=== PATIENT | male | born 1970 | race Caucasian/White ===

== ENCOUNTER 2020-11-05 09:53 | Observation (INO) | payer OTHER ==
[2020-11-05] MEDS ORDERED: SODIUM CHLORIDE 0.9% 500 ML 500 ML IV STA (10:14)
--- NOTE | 2020-11-05 10:18 | ED ---
General Adult HPI - General Chief complaint: Chest Pain Stated complaint: Chest pain Time Seen by Provider: 11/05/20 09:55 Source: patient, RN notes reviewed, old records reviewed Mode of arrival: ambulatory Limitations: no limitations - History of Present Illness Initial comments: This is a 50-year-old male who presents emergency department stating that he was at work watching a video in an air conditioned place he wasn't dehydrated he was not exerting himself. Patient states that all of a sudden he started having some chest tightness short of breath and became very diaphoretic. Patient states he continues to have chest tightness tablets out as bad as it was. Patient denies any medical bronze. Patient states he does smoke cigarettes. Patient denies any family history of heart disease. Patient states he doesn't feel short of breath now as he did earlier but still feels lightheaded. Patient states at work he thought he was given a passout. Patient states she did not pass out. Patient denies any leg swelling or calf tenderness. - Related Data Home Medications Medication Instructions Recorded Confirmed No Known Home Medications 11/05/20 11/05/20 Allergies Allergy/AdvReac Type Severity Reaction Status Date / Time No Known Allergies Allergy Verified 11/05/20 11:00 Review of Systems ROS Statement: Those systems with pertinent positive or pertinent negative responses have been documented in the HPI. ROS Other: All systems not noted in ROS Statement are negative. Past Medical History Past Medical History: No Reported History History of Any Multi-Drug Resistant Organisms: None Reported Past Surgical History: No Surgical Hx Reported Past Psychological History: No Psychological Hx Reported Smoking Status: Current every day smoker Past Alcohol Use History: None Reported Past Drug Use History: None Reported General Exam - General Exam Comments Initial Comments: GENERAL: Patient is well-developed and well-nourished. Patient is nontoxic and well- hydrated and is in mild distress. ENT: Neck is soft and supple. No significant lymphadenopathy is noted. Oropharynx is clear. Moist mucous membranes. Neck has full range of motion without eliciting any pain. EYES: The sclera were anicteric and conjunctiva were pink and moist. Extraocular movements were intact and pupils were equal round and reactive to light. Eyelids were unremarkable. PULMONARY: Unlabored respirations. Good breath sounds bilaterally. No audible rales rhonchi or wheezing was noted. CARDIOVASCULAR: There is a regular rate and rhythm without any murmurs gallops or rubs. ABDOMEN: Soft and nontender with normal bowel sounds. No palpable organomegaly was noted. There is no palpable pulsatile mass. SKIN: Skin is clear with no lesions or rashes and otherwise unremarkable. NEUROLOGIC: Patient is alert and oriented x3. Cranial nerves II through XII are grossly intact. Motor and sensory are also intact. Normal speech, volume and content. Symmetrical smile. MUSCULOSKELETAL: Normal extremities with adequate strength and full range of motion. No lower extremity swelling or edema. No calf tenderness. LYMPHATICS: No significant lymphadenopathy is noted PSYCHIATRIC: Normal psychiatric evaluation. Limitations: no limitations Course Vital Signs 11/05/20 11/05/20 09:55 11:24 Temperature 97.5 F L Pulse Rate 83 79 Respiratory 20 18 Rate Blood Pressure 111/74 121/81 O2 Sat by Pulse 98 98 Oximetry Medical Decision Making - Medical Decision Making EKG shows normal sinus rhythm at 87 bpm CO interval 226 QRS is 88 QT interval 360 QTC is 433. Patient's EKG shows no ST segment elevation or depression. Chest x-ray shows no acute abnormality. I will begin the room patient was still complaining of some chest discomfort. I spoke with Dr. Baca he agreed to admit the patient admitted the patient wrote admitting orders. - Lab Data Result diagrams: 11/05/20 10:15 11/05/20 10:15 Lab Results 11/05/20 11/05/20 11/05/20 Range/Units 10:15 10:15 10:15 WBC 14.7 H (3.8-10.6) k/uL RBC 5.12 (4.30-5.90) m/uL Hgb 15.8 (13.0-17.5) gm/dL Hct 47.5 (39.0-53.0) % MCV 92.7 (80.0-100.0) fL MCH 30.8 (25.0-35.0) pg MCHC 33.2 (31.0-37.0) g/dL RDW 13.7 (11.5-15.5) % Plt Count 363 (150-450) k/uL MPV 6.9 Neutrophils % 73 % Lymphocytes % 14 % Monocytes % 7 % Eosinophils % 4 % Basophils % 1 % Neutrophils # 10.7 H (1.3-7.7) k/uL Lymphocytes # 2.1 (1.0-4.8) k/uL Monocytes # 1.1 H (0-1.0) k/uL Eosinophils # 0.5 (0-0.7) k/uL Basophils # 0.1 (0-0.2) k/uL PT 10.6 (9.0-12.0) sec INR 1.0 (<1.2) APTT 20.6 L (22.0-30.0) sec Sodium 140 (137-145) mmol/L Potassium 4.2 (3.5-5.1) mmol/L Chloride 103 (98-107) mmol/L Carbon Dioxide 30 (22-30) mmol/L Anion Gap 7 mmol/L BUN 13 (9-20) mg/dL Creatinine 0.94 (0.66-1.25) mg/dL Est GFR (CKD-EPI)AfAm >90 (>60 ml/min/1.73 sqM) Est GFR (CKD-EPI)NonAf >90 (>60 ml/min/1.73 sqM) Glucose 103 H (74-99) mg/dL Calcium 9.8 (8.4-10.2) mg/dL Magnesium 1.8 (1.6-2.3) mg/dL Total Bilirubin 0.4 (0.2-1.3) mg/dL AST 24 (17-59) U/L ALT 17 (4-49) U/L Alkaline Phosphatase 94 (38-126) U/L Troponin I (0.000-0.034) ng/mL Total Protein 7.0 (6.3-8.2) g/dL Albumin 4.4 (3.5-5.0) g/dL 11/05/20 Range/Units 10:15 WBC (3.8-10.6) k/uL RBC (4.30-5.90) m/uL Hgb (13.0-17.5) gm/dL Hct (39.0-53.0) % MCV (80.0-100.0) fL MCH (25.0-35.0) pg MCHC (31.0-37.0) g/dL RDW (11.5-15.5) % Plt Count (150-450) k/uL MPV Neutrophils % % Lymphocytes % % Monocytes % % Eosinophils % % Basophils % % Neutrophils # (1.3-7.7) k/uL Lymphocytes # (1.0-4.8) k/uL Monocytes # (0-1.0) k/uL Eosinophils # (0-0.7) k/uL Basophils # (0-0.2) k/uL PT (9.0-12.0) sec INR (<1.2) APTT (22.0-30.0) sec Sodium (137-145) mmol/L Potassium (3.5-5.1) mmol/L Chloride (98-107) mmol/L Carbon Dioxide (22-30) mmol/L Anion Gap mmol/L BUN (9-20) mg/dL Creatinine (0.66-1.25) mg/dL Est GFR (CKD-EPI)AfAm (>60 ml/min/1.73 sqM) Est GFR (CKD-EPI)NonAf (>60 ml/min/1.73 sqM) Glucose (74-99) mg/dL Calcium (8.4-10.2) mg/dL Magnesium (1.6-2.3) mg/dL Total Bilirubin (0.2-1.3) mg/dL AST (17-59) U/L ALT (4-49) U/L Alkaline Phosphatase (38-126) U/L Troponin I <0.012 (0.000-0.034) ng/mL Total Protein (6.3-8.2) g/dL Albumin (3.5-5.0) g/dL Disposition Clinical Impression: Chest pain Disposition: ADMITTED IP TO THIS HOSP Referrals: None,Stated [Primary Care Provider] - 1-2 days Time of Disposition: 13:40
[2020-11-05 10:27] LABS: Basophils # (A) 0.1 k/uL (0-0.2); Basophils % (A) 1 %; Eosinophils # (A) 0.5 k/uL (0-0.7); Eosinophils % (A) 4 %; HCT 47.5 % (39.0-53.0); HGB 15.8 gm/dL (13.0-17.5); Lymphocytes # (A) 2.1 k/uL (1.0-4.8); Lymphocytes % (A) 14 %; MCH 30.8 pg (25.0-35.0); MCHC 33.2 g/dL (31.0-37.0); MCV 92.7 fL (80.0-100.0); Mean Platelet Volume 6.9; Monocytes # (A) 1.1 k/uL (0-1.0); Monocytes % (A) 7 %; Neutrophils # (A) 10.7 k/uL (1.3-7.7); Neutrophils % (A) 73 %; Platelet Count 363 k/uL (150-450); RBC 5.12 m/uL (4.30-5.90); RDW 13.7 % (11.5-15.5); WBC 14.7 k/uL (3.8-10.6)
[2020-11-05 10:33] LABS: ALT 17 U/L (4-49); AST 24 U/L (17-59); African American GFR (CKD) >90 (>60 ml/min/1.73 sqM); Albumin 4.4 g/dL (3.5-5.0); Alkaline Phosphatase 94 U/L (38-126); Anion Gap 7 mmol/L; Blood Urea Nitrogen 13 mg/dL (9-20); Calcium 9.8 mg/dL (8.4-10.2); Carbon Dioxide 30 mmol/L (22-30); Chloride 103 mmol/L (98-107); Glucose 103 mg/dL (74-99); Magnesium 1.8 mg/dL (1.6-2.3); Non-African American GFR(CKD) >90 (>60 ml/min/1.73 sqM); Potassium 4.2 mmol/L (3.5-5.1); Sodium 140 mmol/L (137-145); Total Bilirubin 0.4 mg/dL (0.2-1.3)
[2020-11-05 10:38] LABS: Prothrombin Time 10.6 sec (9.0-12.0)
[2020-11-05 10:49] LABS: Partial Thromboplastin Time 20.6 sec (22.0-30.0)
--- NOTE | 2020-11-05 11:30 | XR ---
EXAMINATION TYPE: XR chest 2V DATE OF EXAM: 11/05/2020 COMPARISON: NONE HISTORY: Weakness in 50-year-old male TECHNIQUE: Frontal and lateral views of the chest are obtained. FINDINGS: Multiple overlying leads. Heart size is within normal limits. There is hyperaeration of rosetta ngs, with increased retrosternal airspace which may represent COPD. Mild coarsening of the interstiti al markings may represent chronic interstitial lung changes but prior exams are not available for com parison. No pneumothorax or pleural effusion. IMPRESSION: 1. Hyperaeration of lungs with increased retrosternal airspace may represent COPD. 2. Coarse interstitial markings may represent chronic interstitial lung changes. No prior exams avail able for comparison.
[2020-11-05] MEDS ORDERED: NITROGLYCERIN SL TABS 0.4 MG TAB SUBLINGUAL PRN (13:41)
--- NOTE | 2020-11-05 17:07 | P.HPIM ---
History of Present Illness 50-year-old male with no known previous history of coronary disease and extensive smoking history smokes about one and half pack per day came in with the main complaints of lightheadedness and near syncopal episode without any syncope or collapse along with chest tightness in the left side of the chest which started today morning became diaphoretic, symptoms started one and half hour after eating and coffee. Patient denied any shortness of breath, chest pain is nonpleuritic. EKG showed a normal sinus rhythm with some right axis deviation and right ventricular hypertrophy. Chest x-ray is consistent with COPD with coarse interstitial markings. Patient denied any family history of coronary artery disease facet of troponin is negative REVIEW OF SYSTEMS: CONSTITUTIONAL: No fever, no malaise, no fatigue. HEENT: No recent visual problems or hearing problems. Denied any sore throat. CARDIOVASCULAR: No orthopnea, PND, no palpitations, no syncope. PULMONARY: No shortness of breath, no cough, no hemoptysis. GASTROINTESTINAL: No diarrhea, no nausea, no vomiting, no abdominal pain. NEUROLOGICAL: No headaches, no weakness, no numbness. HEMATOLOGICAL: Denies any bleeding or petechiae. GENITOURINARY: Denies any burning micturition, frequency, or urgency. MUSCULOSKELETAL/RHEUMATOLOGICAL: Denies any joint pain, swelling, or any muscle pain. ENDOCRINE: Denies any polyuria or polydipsia. The rest of the 14-point review of systems is negative. PHYSICAL EXAMINATION: GENERAL: The patient is alert and oriented x3, not in any acute distress. Well developed, well nourished. HEENT: Pupils are round and equally reacting to light. EOMI. No scleral icterus. No conjunctival pallor. Normocephalic, atraumatic. No pharyngeal erythema. No thyromegaly. CARDIOVASCULAR: S1 and S2 present. No murmurs, rubs, or gallops. PULMONARY: Chest is clear to auscultation, no wheezing or crackles. ABDOMEN: Soft, nontender, nondistended, normoactive bowel sounds. No palpable organomegaly. MUSCULOSKELETAL: No joint swelling or deformity. EXTREMITIES: No cyanosis, clubbing, or pedal edema. NEUROLOGICAL: Gross neurological examination did not reveal any focal deficits. SKIN: No rashes. Assessment and plan -Chest pain with near syncope: We will rule out acute coronary syndromes patient will be evaluated by cardiology patient will need echo cardiac exam which will be ordered. Further management depending on troponins and cardiology recommendations. 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 doesn't have any COPD exacerbation at this time may have pulmonary hypertension DVT prophylaxis: Ambulation Past Medical History Past Medical History: No Reported History History of Any Multi-Drug Resistant Organisms: None Reported Past Surgical History: No Surgical Hx Reported Past Psychological History: No Psychological Hx Reported Smoking Status: Current every day smoker Past Alcohol Use History: None Reported Past Drug Use History: None Reported Medications and Allergies Home Medications Medication Instructions Recorded Confirmed Type No Known Home Medications 11/05/20 11/05/20 History Allergies Allergy/AdvReac Type Severity Reaction Status Date / Time No Known Allergies Allergy Verified 11/05/20 11:00 Physical Exam Vitals: Vital Signs Temp Pulse Pulse Pulse Pulse Pulse Resp 11/05/20 16:20 98.4 F 74 16 11/05/20 15:18 98.1 F 84 16 11/05/20 13:00 75 18 11/05/20 11:24 79 18 11/05/20 10:20 79 81 80 11/05/20 09:55 97.5 F L 83 20 BP BP BP BP Pulse Ox 11/05/20 16:20 125/76 98 11/05/20 15:18 128/85 97 11/05/20 13:00 117/85 99 11/05/20 11:24 121/81 98 11/05/20 10:20 129/82 119/79 122/82 11/05/20 09:55 111/74 98 Intake and Output 11/05/20 11/05/20 11/05/20 06:59 14:59 22:59 Other: Voiding Method Toilet Weight 66.678 kg 66.678 kg Results CBC & Chem 7: 11/05/20 10:15 11/05/20 10:15 Labs: Abnormal Lab Results - Last 24 Hours (Table) 11/05/20 11/05/20 11/05/20 Range/Units 10:15 10:15 10:15 WBC 14.7 H (3.8-10.6) k/uL Neutrophils # 10.7 H (1.3-7.7) k/uL Monocytes # 1.1 H (0-1.0) k/uL APTT 20.6 L (22.0-30.0) sec Glucose 103 H (74-99) mg/dL Thrombosis Risk Factor Assmnt - Choose All That Apply Any of the Below Risk Factors Present?: Yes Each Factor Represents 1 point: Age 41-60 years Other Risk Factors: No Thrombosis Risk Factor Assessment Total Risk Factor Score: 1 Thrombosis Risk Factor Assessment Level: Low Risk
[2020-11-05] MEDS: NITROGLYCERIN OINT 1 INCH/GM PACKET TOPICAL SCH (20:49)
[2020-11-06] MEDS: NITROGLYCERIN OINT 1 INCH/GM PACKET TOPICAL SCH ×3 (00:03→12:53)
[2020-11-06 07:55] VITALS: RESP 18
[2020-11-06] MEDS ORDERED: ASPIRIN 325 MG TAB PO SCH (09:00)
[2020-11-06] MEDS ORDERED: ASPIRIN 81 MG PO SCH (09:00)
--- NOTE | 2020-11-06 10:04 | P.CRDCN ---
History of Present Illness History of present illness: HISTORY OF PRESENTING ILLNESS This is a pleasant 50-year-old male with past medical history of chronic nicotine dependence. 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 Patient is seen and examined at bedside, lying flat in bed no acute distress. 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 He was watching a video on how to complete a job at work on a truck. He was not exerting himself. He stood up walked over to the truck and had an acute onset of dizziness, he felt the whole room spinning and had a brief episode of chest tightness that resolved after a few seconds and became very diaphoretic. He was lightheaded. He thought he may pass out. He is chronic smoker smokes 1-1/2 pack a day. He drinks 20oz of [place] coffee every morning and 4 10oz bottles of [place] dew a day. Drinks little water. He denies history of hypertension, GA, stroke, hyperlipidemia, diabetes. Patient denies any family history of heart disease.He denies alcohol and illicit drug use. Does not currently take any medications at home. DIAGNOSTICS EKG reveals sinus rhythm, T wave flattening in leads aVL, Telemetry tracings indicate sinus rhythm heart rate 60-70s. Chest xray hyperaeration of lungs with increased retrosternal air space, may represent stroke. Coarse interstitial markings may represent chronic lung changes. Laboratory reviewed, Troponin negative x 3. WBC 14.7, hemoglobin 50.8, platelets 363, sodium 140, potassium 4.3, BUN/creatinine 13, serum creatinine 0.94, magnesium 1.8 REVIEW OF SYSTEMS At the time of my exam: CONSTITUTIONAL: Denies fever or chills. CARDIOVASCULAR: +chest pain, +shortness of breath, Denies orthopnea, PND or palpitations. RESPIRATORY: Denies cough. GASTROINTESTINAL: Denies abdominal pain, diarrhea, constipation, nausea or vomiting. MUSCULOSKELETAL: Denies myalgias. NEUROLOGIC: Denies numbness, tingling, headacbe or weakness. ENDOCRINE: Denies fatigue, weight change, polydipsia or polyurina. GENITOURINARY: Denies burning, hematuria or urgency with micturation. HEMATOLOGIC: Denies history of anemia or bleeding. PHYSICAL EXAMINATION Blood pressure 108/66 heart rate 65 afebrile and maintaining oxygen saturation 97% on room air CONSTITUTIONAL: No apparent distress. HEENT: Head is normocephalic. Pupils are equal, round. Sclerae anicteric. Mucous membranes of the mouth are moist. No JVD. No carotid bruit. CHEST EXAMINATION: Lungs are clear to auscultation. No chest wall tenderness is noted on palpation or with deep breathing. HEART EXAMINATION: Regular rate and rhythm. S1, S2 heard. No murmurs, gallops or rub. ABDOMEN: Soft, nontender. Positive bowel sounds. EXTREMITIES: 2+ peripheral pulses, no lower extremity edema and no calf tenderness. NEUROLOGIC EXAMINATION: Patient is awake, alert and oriented x3. ASSESSMENT Chest pain, Diaphoresis, shortness of breath, acute coronory syndrome has been ruled out. No ischemia noted on EKG. Cardiac enzymes are negative 3 Chronic nicotine dependence PLAN An acute coronary event has been ruled out with no EKG evidence of ischemia and negative cardiac enzymes. Obtain 2D echocardiogram and doppler study to assess cardiac structure and function. Perform stress echo test to assess for stress induced cardiac ischemia. If abnormal will consider coronary angiography. A stress Echo test is normal and echocardiogram with no acute findings, patient can be discharged from cardiology perspective. Lipid panel ordered Smoking cessation discussed and highly recommended. Thank you kindly for this consultation. Nurse Practitioner note has been reviewed, I agree with a documented findings and plan of care. Patient was seen and examined. Past Medical History Past Medical History: No Reported History History of Any Multi-Drug Resistant Organisms: None Reported Past Surgical History: No Surgical Hx Reported Past Psychological History: No Psychological Hx Reported Smoking Status: Current every day smoker Past Alcohol Use History: None Reported Past Drug Use History: None Reported Medications and Allergies Home Medications Medication Instructions Recorded Confirmed Type No Known Home Medications 11/05/20 11/05/20 History Allergies Allergy/AdvReac Type Severity Reaction Status Date / Time No Known Allergies Allergy Verified 11/05/20 11:00 Physical Exam Vitals: Vital Signs Temp Pulse Resp BP Pulse Ox 11/05/20 11:24 79 18 121/81 98 11/05/20 09:55 97.5 F L 83 20 111/74 98 Intake and Output 11/05/20 11/05/20 11/05/20 06:59 14:59 22:59 Other: Weight 66.678 kg Results 11/05/20 10:15 11/05/20 10:15 Cardiac Enzymes 11/05/20 11/05/20 Range/Units 10:15 10:15 AST 24 (17-59) U/L Troponin I <0.012 (0.000-0.034) ng/mL Coagulation 11/05/20 Range/Units 10:15 PT 10.6 (9.0-12.0) sec APTT 20.6 L (22.0-30.0) sec CBC 11/05/20 Range/Units 10:15 WBC 14.7 H (3.8-10.6) k/uL RBC 5.12 (4.30-5.90) m/uL Hgb 15.8 (13.0-17.5) gm/dL Hct 47.5 (39.0-53.0) % Plt Count 363 (150-450) k/uL Comprehensive Metabolic Panel 11/05/20 Range/Units 10:15 Sodium 140 (137-145) mmol/L Potassium 4.2 (3.5-5.1) mmol/L Chloride 103 (98-107) mmol/L Carbon Dioxide 30 (22-30) mmol/L BUN 13 (9-20) mg/dL Creatinine 0.94 (0.66-1.25) mg/dL Glucose 103 H (74-99) mg/dL Calcium 9.8 (8.4-10.2) mg/dL AST 24 (17-59) U/L ALT 17 (4-49) U/L Alkaline Phosphatase 94 (38-126) U/L Total Protein 7.0 (6.3-8.2) g/dL Albumin 4.4 (3.5-5.0) g/dL Current Medications Generic Name Dose Route Start Last Admin Trade Name Freq PRN Reason Stop Dose Admin Aspirin 325 mg 11/06/20 09:00 Aspirin 325 Mg Tab PO DAILY JOAO Nitroglycerin 0.4 mg 11/05/20 13:41 Nitroglycerin Sl Tabs 0.4 Mg Tab SUBLINGUAL Q5M PRN Chest Pain Nitroglycerin 1 inch 11/05/20 18:00 Nitroglycerin Oint 1 Inch/Gm Packet TOPICAL Q6HR JOAO Intake and Output 11/05/20 11/05/20 11/05/20 06:59 14:59 22:59 Other: Weight 66.678 kg Patient Weight 11/06/20 06:59 Weight 66.678 kg 11/05/20 10:15 11/05/20 10:15
--- NOTE | 2020-11-06 10:31 | ECHOF ---
Referral Reason:Chest pain MEASUREMENTS -------- HEIGHT: 180.3 cm WEIGHT: 66.7 kg BP: 116/71 RVIDd: 3.2 cm (< 3.3) IVSd: 1.1 cm (0.6 - 1.1) LVIDd: 4.2 cm (3.9 - 5.3) LVPWd: 1.2 cm (0.6 - 1.1) IVSs: 1.5 cm LVIDs: 2.1 cm LVPWs: 2.0 cm LAESV Index (A-L): 18.49 ml/m Ao Diam: 3.2 cm (2.0 - 3.7) AV Cusp: 2.1 cm (1.5 - 2.6) MV EXCURSION: 12.613 mm (> 18.000) MV EF SLOPE: 103 mm/s (70 - 150) EPSS: 0.5 cm MV E Daniele: 0.74 m/s MV DecT: 264 ms MV A Daniele: 0.54 m/s MV E/A Ratio: 1.36 RAP: 5.00 mmHg RVSP: 15.95 mmHg FINDINGS -------- Sinus rhythm. This was a technically adequate study. The left ventricular size is normal. There is borderline concentric left ventricular hypertrophy. Overall left ventricular systolic function is normal with, an EF between 55 - 60 %. The diastolic filling pattern is normal for the age of the patient 7.32. The right ventricle is normal in size. Normal LA size by volume 22+/-6 ml/m2. The right atrial size is normal. Interatrial and interventricular septum intact. There is no evidence of aortic regurgitation. There is no evidence of aortic stenosis. Mild mitral regurgitation is present. Mild tricuspid regurgitation present. There is no evidence of pulmonary hypertension. The right v entricular systolic pressure, as measured by Doppler, is 15.95mmHg. There is no pulmonic regurgitation present. The aortic root size is normal. IVC Not well visulized. There is no pericardial effusion. CONCLUSIONS -------- 1. The left ventricular size is normal. 2. There is borderline concentric left ventricular hypertrophy. 3. Overall left ventricular systolic function is normal with, an EF between 55 - 60 %. 4. The diastolic filling pattern is normal for the age of the patient 7.32 5. Mild mitral regurgitation is present. 6. Mild tricuspid regurgitation present. BRICK WASHER: Kelin Frias RDCS
[2020-11-06 11:32] LABS: Chol/HDL Ratio 3.27; LDL Cholesterol,Calculated 88.2 mg/dL (0.0-131.0); VLDL Calculation 13.8 mg/dL (5.00-40.00)
[2020-11-06 14:52] VITALS: BP 115/66; PULSE 82; TEMP 98.1
--- NOTE | 2020-11-06 16:08 | P.DS ---
Providers Date of admission: 11/05/20 13:46 Attending physician: [place] Consults: 11/05/20 13:41 Consult Physician Urgent Consulting Provider: [facility] Consult Reason/Comments: Chest pain Do you want consulting provider notified?: Yes Primary care physician: Stated None Hospital Course: 50-year-old male came in with chest pain rule out acute coronary syndromes chest pain is noncardiac etiology of chest pain is not clear. Patient underwent stress test which is stress echocardiogram which was negative patient is cleared for discharge from cardiology perspective and is being discharged today. Patient has nicotine abuse history extensive counseling was provided regarding that. PHYSICAL EXAMINATION: GENERAL: The patient is alert and oriented x3, not in any acute distress. Well developed, well nourished. HEENT: Pupils are round and equally reacting to light. EOMI. No scleral icterus. No conjunctival pallor. Normocephalic, atraumatic. No pharyngeal erythema. No th yromegaly. CARDIOVASCULAR: S1 and S2 present. No murmurs, rubs, or gallops. PULMONARY: Chest is clear to auscultation, no wheezing or crackles. ABDOMEN: Soft, nontender, nondistended, normoactive bowel sounds. No palpable organomegaly. MUSCULOSKELETAL: No joint swelling or deformity. EXTREMITIES: No cyanosis, clubbing, or pedal edema. NEUROLOGICAL: Gross neurological examination did not reveal any focal deficits. SKIN: No rashes. Plan - Discharge Summary Discharge Rx Participant: No New Discharge Prescriptions: No Action No Known Home Medications Discharge Medication List No Known Home Medications 11/05/20 [History] Follow up Appointment(s)/Referral(s): Abbie Flannery MD [REFERRING] - 1 Week Nayeli Garcia MD [STAFF PHYSICIAN] - 2 Weeks Patient Instructions/Handouts: Chest Pain (DC), Dizziness (ED) Discharge Disposition: HOME SELF-CARE
--- NOTE | 2020-11-06 17:21 | P.STRESS ---
- Stress Test Note Stress Test Results/Findings: Exam Performed: stress echo exercise Exam Date: 11/06/20 Reason for Exam: CHEST PAIN, DIZZINESS Height: 5 ft 11 in Weight: 66.68 kg Protocol: STRESS ECHO Stage: 5 Duration of Exercise: 13:01 Resting Heart Rate: 70 Resting Blood Pressure: 119/86 Maximum Achieved Heart Rate: 161 Maximum Achieved Blood Pressure: 156/72 85% PMHR: 146 100% PMHR: 172 METS: 13.5 Technologist Comment: Stress Test Results/Findings: This is a 50-year-old gentleman with history of chest pain and dizziness being e valuated for cardiac status. Stress data: Baseline EKG showed sinus rhythm with small W[place] interval and QRS duration. Blood pressure at rest is 119/86 with pulse rate of 70. Patient walked on the Rian protocol for 13 minutes achieving a maximum rate of 161 with a blood pressure 149/60. EKGs taken during and after exercise did not reveal any changes of ischemia. Patient did not experience any chest pain. Echo data: Baseline echo images show normal wall motion and thickening. Exercise echo images showed augmentation of the wall motion and thickening in all the segments. Final impression: #1. Negative stress test #2. Negative stress echo.
--- NOTE | 2020-11-09 10:55 | ECHOS ---
Stress Test Results/Findings: Exam Performed: stress echo exercise Exam Date: 11/06/20 Reason for Exam: CHEST PAIN, DIZZINESS Height: 5 ft 11 in Weight: 66.68 kg Protocol: STRESS ECHO Stage: 5 Duration of Exercise: 13:01 Resting Heart Rate: 70 Resting Blood Pressure: 119/86 Maximum Achieved Heart Rate: 161 Maximum Achieved Blood Pressure: 156/72 85% PMHR: 146 100% PMHR: 172 METS: 13.5 Technologist Comment: Stress Test Results/Findings: This is a 50-year-old gentleman with history of chest pain and dizziness being evaluated for cardiac status. Stress data: Baseline EKG showed sinus rhythm with small DE interval and QRS duration. Blood pressure at rest is 119/86 with pulse rate of 70. Patient walked on the Rian protocol for 13 minutes achieving a maximum rate of 161 with a blood pressure 149/60. EKGs taken during and after exercise did not reveal any changes of ischemia. Patient did not experience any chest pain. Echo data: Baseline echo images show normal wall motion and thickening. Exercise echo images showed augmentation of the wall motion and thickening in all the segments. Final impression: #1. Negative stress test #2. Negative stress echo. BILLIE
== END 2020-11-06 16:22 | disposition home or self-care (01) ==
LOC: EC 09:53 → 6NMEDSUR 13:46
PROVIDERS: ADMIT Internal Medicine; ATTEND Internal Medicine
DX: R07.89 Other chest pain (principal); R55 Syncope and collapse; J43.9 Emphysema, unspecified; E86.0 Dehydration; F17.210 Nicotine dependence, cigarettes, uncomplicated; I51.7 Cardiomegaly; R61 Generalized hyperhidrosis
CPT/HCPCS: 93005 ×2; 96360; 99285; 36415; 93306; 93351; 80061; 80053; 83735; 84484; 85025; 85610; 85730; 71046; G0378 ×2